=== PATIENT | female | born 1955 ===

== ENCOUNTER 2017-11-03 09:37 | Emergency (ER) | payer OTHER ==
--- NOTE | 2017-11-03 09:45 | ED PDOC ---
Arrival/HPI - General Time Seen by Provider: 11/03/17 09:38 Historian: Patient, Family - History of Present Illness Narrative History of Present Illness (Text): 11/03/17 09:50 A 62 year old female, whose past medical history includes diabetes, hypertension , and cholecystectomy, presents to the emergency department complaining of diffused abdominal pain. Patient reports pain began last night. Patient denies any nausea, vomiting, diarrhea, hematuria, bloody stool, or any other complaints. No PMD Time/Duration: Other (last night) Symptom Onset: Sudden Symptom Course: Unchanged Past Medical History - Provider Review Nursing Documentation Reviewed: Yes - Cardiac Hx Hypertension: Yes - Endocrine/Metabolic Hx Diabetes Mellitus Type 1: Yes - Psychiatric Hx Substance Use: No - Surgical History Hx Cholecystectomy: Yes - Anesthesia Hx Anesthesia: No Hx Anesthesia Reactions: No Hx Malignant Hyperthermia: No - Suicidal Assessment Feels Threatened In Home Enviroment: No Family/Social History - Physician Review Nursing Documentation Reviewed: Yes Family/Social History: No Known Family HX Smoking Status: Never Smoked Hx Alcohol Use: No Hx Substance Use: No Allergies/Home Meds Allergies/Adverse Reactions: Allergies No Known Allergies Allergy (Verified 07/21/15 11:43) Home Medications: Home Meds Medication Instructions Recorded Confirmed Insulin Detemir [Levemir Flexpen] 20 unit SC HS 07/21/15 11/03/17 Insulin Lispro, Recombinant 5 units SC ACBD 07/21/15 11/03/17 [Humalog] Glibenclamida 5 mg PO DAILY 11/03/17 11/03/17 Review of Systems - Physician Review All systems were reviewed & negative as marked: Yes - Review of Systems Gastrointestinal: Abdominal Pain (lower abdominal pain). absent: Stool Changes (no bloody stool), Diarrhea, Nausea, Vomiting Genitourinary Female: absent: Hematuria Physical Exam Vital Signs Reviewed: Yes Vital Signs Temp Pulse Resp BP Pulse Ox 11/03/17 13:20 80 18 156/81 H 97 11/03/17 09:37 98 F 86 16 161/100 H 98 Temperature: Afebrile Blood Pressure: Hypertensive Pulse: Regular Respiratory Rate: Normal Appearance: Positive for: Well-Appearing Pain Distress: None Mental Status: Positive for: Alert and Oriented X 3 - Systems Exam Abdomen: Present: Tenderness (mild lower abdominal tenderness) Medical Decision Making ED Course and Treatment: 11/03/17 09:55 Impression: 62 year old female with diffuse lower abdominal pain. Physical exam shows mild lower abdominal tenderness. r/o colitis, gastritis, pancreatitis. Plan: -- EKG -- Abd/Pelvis CT -- Chest X-ray -- Labs -- Urinalysis -- Protonix -- IV Fluids -- Reassess and disposition Prior Visits: Notes and results from previous visits were reviewed. Patient was last seen in the emergency department on 06/18/2016 for shortness of breath, palpitations, tingling in her hands, and upper chest tightness. Patient was discharged. Progress Notes: EKG: Ordered, reviewed, and independently interpreted the EKG. Rate : 84 BPM Rhythm : NSR Interpretation : No ST-segment elevations or depressions, no T-wave inversions, normal intervals. Comparison : No previous EKG for comparison. 11/03/2017 12:37 Abd/Pelvis CT FINDINGS: LOWER THORAX: There is a focal consolidation at the left lung base suspicious for pneumonia LIVER: Unremarkable. No gross lesion or ductal dilatation. GALLBLADDER AND BILE DUCTS: The gallbladder has been removed. There is dilatation of the common duct measuring 12 mm. There are no common duct stones seen and no evidence of an obstructing mass. PANCREAS: Unremarkable. No gross lesion or ductal dilatation. SPLEEN: Unremarkable. ADRENALS: Unremarkable. No mass. KIDNEYS AND URETERS: Unremarkable. No hydronephrosis. No solid mass. VASCULATURE: Unremarkable. No aortic aneurysm. BOWEL: Unremarkable. No obstruction. No gross mural thickening. APPENDIX: Normal appendix. PERITONEUM: Unremarkable. No free fluid. No free air. LYMPH NODES: Unremarkable. No enlarged lymph nodes. BLADDER: Unremarkable. REPRODUCTIVE: Unremarkable. BONES: No acute fracture. OTHER FINDINGS: None. IMPRESSION: Focal round consolidation at the left lung base suspicious for pneumonia. Lung mass cannot be excluded. No acute intra-abdominal findings Dictator: Gabe Casanova MD 11/03/17 12:52 ?pna vs mass- pt reports mild cough, curb 65 neg. advise outpt f/u for further w /u and eval for mass. explained extensively with georgian tranlatior 11/03/17 13:47 - Lab Interpretations Lab Results: 11/03/17 09:15 11/03/17 09:15 Lab Results 11/03/17 11:30: Urine Color Light yellow, Urine Appearance Clear, Urine pH 6.0, Ur Specific [place] 1.010, Urine Protein 30 H, Urine Glucose (UA) Negative, Urine Ketones Negative, Urine Blood Negative, Urine Nitrate Negative, Urine Bilirubin Negative, Urine Urobilinogen 0.2, Ur Leukocyte Esterase Trace H, Urine RBC 0 - 2, Urine WBC 2 - 5, Ur Epithelial Cells 0 - 2, Urine Bacteria Many 11/03/17 09:15: Sodium 141, Potassium 4.2, Chloride 105, Carbon Dioxide 28, Anion Gap 12, BUN 20, Creatinine 0.8, Est GFR ( Amer) > 60, Est GFR (Non- Af Amer) > 60, Random Glucose 120 H, Calcium 9.3, Total Bilirubin 0.5, Direct Bilirubin 0.4, AST 29, ALT 36, Alkaline Phosphatase 123, Lactate Dehydrogenase 475, Total Creatine Kinase 66, Troponin I < 0.01, Total Protein 7.7, Albumin 4.0 , Globulin 3.7, Albumin/Globulin Ratio 1.1, Amylase 58, Lipase 49 11/03/17 09:15: PT 11.3, INR 1.03, APTT 30.6 11/03/17 09:15: WBC 6.2, RBC 3.65, Hgb 10.9 L, Hct 32.8 L, MCV 89.9, MCH 29.9, MCHC 33.2, RDW 12.4, Plt Count 211, MPV 11.2 H, Gran % 67.4, Lymph % (Auto) 23.2 , Grant % (Auto) 5.8, Eos % (Auto) 3.4, Baso % (Auto) 0.2, Gran # 4.16, Lymph # 1.4, Grant # 0.4, Eos # 0.2, Baso # 0.01 I have reviewed the lab results: Yes - RAD Interpretation Radiology Orders: 11/03/17 11:01 ABD & PELVIS IV CONTRAST ONLY [CT] Stat 11/03/17 12:39 CXR [CHEST PORTABLE] [RAD] Stat - Medication Orders Current Medication Orders: Discontinued Medications Sodium Chloride (Sodium Chloride 0.9%) 500 mls @ 999 mls/hr IV .Q31M STA Stop: 11/03/17 10:25 Last Admin: 11/03/17 10:25 Dose: 999 mls/hr eMAR Start Stop Document 11/03/17 10:25 SRE (Rec: 11/03/17 10:26 SRE [id number]) Intravenous Solution Start Date 11/03/17 Start Time 10:25 End Date 11/03/17 End time 11:25 Total Infusion Time 60 Pantoprazole Sodium (Protonix Inj) 40 mg IVP ONCE ONE Stop: 11/03/17 10:01 Last Admin: 11/03/17 10:26 Dose: 40 mg IVP Administration Document 11/03/17 10:26 SRE (Rec: 11/03/17 10:26 SRE [id number]) Charges for Administration # of IVP Administrations 1 - Scribe Statement The provider has reviewed the documentation as recorded by the Maryam Peralta Provider Scribe Attestation: All medical record entries made by the Scribe were at my direction and personally dictated by me. I have reviewed the chart and agree that the record accurately reflects my personal performance of the history, physical exam, medical decision making, and the department course for this patient. I have also personally directed, reviewed, and agree with the discharge instructions and disposition. Disposition/Present on Arrival - Present on Arrival Any Indicators Present on Arrival: No History of DVT/PE: No History of Uncontrolled Diabetes: Yes Urinary Catheter: No History Surgical Site Infection Following: None - Disposition Have Diagnosis and Disposition been Completed?: Yes Diagnosis: Abdominal pain, Pneumonia Disposition: HOME/ ROUTINE Disposition Time: 12:53 Condition: STABLE Discharge Instructions (ExitCare): Acute Abdominal Pain (DC), Bacterial Pneumonia (ED) Print Language: GERMAN Additional Instructions: follow up with your doctor. you will need futher evaluation to rule out a mass. return to emergency room with worsening symptoms or concerns. it is important that you follow up with your doctor/clinic. Prescriptions: levoFLOXacin [Levaquin] 750 mg PO DAILY #10 tab Referrals: Felecia Melgar, [Primary Care Provider] - Follow up with primary [facility] [Outside] - Follow up with primary [facility] [Outside] - Follow up with primary [facility] [Outside] - Follow up with primary Forms: [employer] (Arabic)
[2017-11-03] MEDS ORDERED: Pantoprazole 40 MG in Sodium Chloride 0.9% 100 ML IV STA (09:54)
[2017-11-03] MEDS ORDERED: Sodium Chloride 0.9% 500 ML IV STA (09:55)
[2017-11-03 09:56] VITALS: TEMP 98; BMI 28.5
[2017-11-03 10:38] LABS: BASO # 0.01 K/mm3 (0.0-2.0); BASO % 0.2 % (0.0-3.0); EOS # 0.2 (0.0-0.7); EOS % 3.4 % (1.5-5.0); GRAN # 4.16 (1.4-6.5); GRAN % 67.4 % (50.0-68.0); HEMATOCRIT 32.8 % (36.0-48.0); LYMPH # 1.4 (1.2-3.4); LYMPH % 23.2 % (22.0-35.0); MEAN CELL VOLUME 89.9 fl (80.0-105.0); MEAN CORPUSCULAR HEMOGLOBIN 29.9 pg (25.0-35.0); MEAN CORPUSCULAR HGB CONC 33.2 g/dl (31.0-37.0); MEAN PLATELET VOLUME 11.2 fl (7.0-11.0); MONO # 0.4 (0.1-0.6); MONO % 5.8 % (1.0-6.0); RED CELL DISTRIBUTION WIDTH 12.4 % (11.5-14.5); WHITE BLOOD COUNT 6.2 10^3/ul (4.5-11.0)
[2017-11-03 10:44] LABS: INR 1.03 (0.93-1.08); PARTIAL THROMBOPLASTIN TIME 30.6 Seconds (25.1-36.5)
[2017-11-03 10:45] LABS: ALB/GLOB RATIO 1.1 (1.1-1.8); ALKALINE PHOSPHATASE 123 U/L (38-126); ALT/SGPT 36 U/L (7-56); AMYLASE 58 U/L (35-125); AST/SGOT 29 U/L (14-36); BILIRUBIN,TOTAL 0.5 mg/dL (0.2-1.3); BLOOD UREA NITROGEN 20 mg/dL (7-21); CALCIUM 9.3 mg/dL (8.4-10.5); CARBON DIOXIDE 28 mmol/L (21-33); CHLORIDE 105 mmol/L (98-107); GFR AFRICAN-AMERICAN > 60; GLUCOSE,RANDOM 120 mg/dL (70-110); LIPASE 49 U/L (23-300); POTASSIUM 4.2 mmol/L (3.6-5.0); SODIUM 141 mmol/L (132-148); TOTAL PROTEIN 7.7 g/dL (5.8-8.3)
[2017-11-03 10:54] LABS: TROPONIN I < 0.01 ng/mL
[2017-11-03 10:56] LABS: BILIRUBIN,DIRECT 0.4 mg/dL (0.0-0.4)
[2017-11-03] MEDS ORDERED: Iohexol 350 MG/100 ML VIAL ONE (11:35)
[2017-11-03 11:47] LABS: URINE BILIRUBIN NEGATIVE (NEGATIVE); URINE BLOOD NEGATIVE (NEGATIVE); URINE GLUCOSE (UA) NEGATIVE (NEGATIVE); URINE KETONE NEGATIVE (NEGATIVE); URINE LEUKOCYTE ESTERASE TRACE Leu/uL (NEGATIVE); URINE PROTEIN 30 mg/dL (<30 mg/dL); URINE UROBILINOGEN 0.2 E.U./dL (<1 E.U./dL)
[2017-11-03 11:48] LABS: URINE APPEARANCE CLEAR (CLEAR); URINE COLOR LIGHT YELLOW (YELLOW)
[2017-11-03 12:01] LABS: URINE EPITHELIAL CELLS 0 - 2 /hpf (0-5); URINE RBC 0 - 2 /hpf (0-2)
[2017-11-03 12:02] LABS: URINE BACTERIA MANY (NEG)
--- NOTE | 2017-11-03 12:39 | CT ---
PROCEDURE: CT Abdomen and Pelvis with contrast HISTORY: right upper and lower abd pain COMPARISON: None. TECHNIQUE: Contrast dose: 100 cc of Omni 350 Radiation dose: Total exam DLP = 399 mGy-cm. This CT exam was performed using one or more of the following dose reduction techniques: Automated exposure control, adjustment of the mA and/or kV according to patient size, and/or use of iterative reconstruction technique. FINDINGS: LOWER THORAX: There is a focal consolidation at the left lung base suspicious for pneumonia LIVER: Unremarkable. No gross lesion or ductal dilatation. GALLBLADDER AND BILE DUCTS: The gallbladder has been removed. There is dilatation of the common duct measuring 12 mm. There are no common duct stones seen and no evidence of an obstructing mass. PANCREAS: Unremarkable. No gross lesion or ductal dilatation. SPLEEN: Unremarkable. ADRENALS: Unremarkable. No mass. KIDNEYS AND URETERS: Unremarkable. No hydronephrosis. No solid mass. VASCULATURE: Unremarkable. No aortic aneurysm. BOWEL: Unremarkable. No obstruction. No gross mural thickening. APPENDIX: Normal appendix. PERITONEUM: Unremarkable. No free fluid. No free air. LYMPH NODES: Unremarkable. No enlarged lymph nodes. BLADDER: Unremarkable. REPRODUCTIVE: Unremarkable. BONES: No acute fracture. OTHER FINDINGS: None. IMPRESSION: Focal round consolidation at the left lung base suspicious for pneumonia. Lung mass cannot be excluded. No acute intra-abdominal findings
--- NOTE | 2017-11-03 13:13 | RAD ---
HISTORY: abd pain COMPARISON: 06/18/2016 FINDINGS: LUNGS: No active pulmonary disease. PLEURA: No significant pleural effusion identified, no pneumothorax apparent. CARDIOVASCULAR: Normal. OSSEOUS STRUCTURES: No significant abnormalities. VISUALIZED UPPER ABDOMEN: Normal. OTHER FINDINGS: None. IMPRESSION: No active disease.
[2017-11-03 13:22] VITALS: BP 156/81; PULSE 80; RESP 18; O2SAT 97
--- NOTE | 2017-11-03 23:40 | CARD ---
APPROVED REPORT EKG Measurement Heart [id number] MA [id number] <Conclusion> Normal sinus rhythm Inferior infarct, age undetermined Cannot rule out Anterior infarct, age undetermined Abnormal ECG
== END 2017-11-03 13:23 | disposition home or self-care (01) ==
LOC: ED 09:37
DX: J18.9 Pneumonia, unspecified organism (principal); R10.30 Lower abdominal pain, unspecified; I10 Essential (primary) hypertension; E10.9 Type 1 diabetes mellitus without complications
CPT/HCPCS: 71010; 74177; 80053; 81001; 82150; 82248; 82550; 83615; 83690; 84484; 85025; 85610; 85730; 87086; 87181; 93005; 96361; 96374; 99284; C9113; J7040; Q9967

== ENCOUNTER 2019-01-05 11:36 | Outpatient (CLI) | payer OTHER | END 2019-01-05 11:37 | disposition home or self-care (01) | LOC: LAB 11:36 | DX: E11.9 Type 2 diabetes mellitus without complications (principal); Z79.4 Long term (current) use of insulin ==

== ENCOUNTER 2019-02-08 09:33 | Outpatient (CLI) | payer OTHER | END 2019-02-08 09:34 | disposition home or self-care (01) | LOC: RAD 09:33 | DX: R10.31 Right lower quadrant pain (principal) ==

== ENCOUNTER 2019-02-21 11:07 | Emergency (ER) | payer OTHER ==
[2019-02-21 11:07] VITALS: BMI 28.5
[2019-02-21 11:49] VITALS: PULSE 85; O2SAT 100
[2019-02-21 12:06] VITALS: TEMP 97.9
--- NOTE | 2019-02-21 12:06 | ED PDOC ---
Arrival/HPI - General Chief Complaint: Dizziness/Lightheaded Time Seen by Provider: 02/21/19 11:28 Historian: Deicer Inspector Pneumatic (Jaylan, [id number]) - History of Present Illness Narrative History of Present Illness (Text): 02/21/19 12:05 63 F with pmh of diabetes, hypertension, and cholecystectomy presents with cc of intermittent dizziness x3 weeks. Patient is Pakistani speaking, a brim curler was used. Per brim curler, patient reports her dizziness date back to 1 hr ago but it went away for a while, until recently returning 3 weeks ago. Patient mentions that the dizziness sometimes last for approximately 1 hr, describes it as the room spinning making it difficult to grasp any objects while it occurs and occasional episodes of vomiting while dizziness persist. Patient endorses see a physician for dizziness before, as well as being complaint with the prescribed medications. Patient recalls medications relieving her dizziness. Patient denies any fevers, chills, headache, chest pain, cough, diaphoresis, abdominal pain, nausea, vomiting, diarrhea, back pain, neck pain, or any other complaint. Patient was sent to the ED by her pcp. 02/21/19 14:42 Time/Duration: < month Symptom Onset: Gradual Symptom Course: Unchanged Activities at Onset: Light Context: Home Past Medical History - Provider Review Nursing Documentation Reviewed: Yes - Infectious Disease Hx of Infectious Diseases: None - Cardiac Hx Cardiac Disorders: Yes Hx Hypertension: Yes - Pulmonary Hx Respiratory Disorders: Yes Hx Bronchitis: Yes - Neurological Hx Neurological Disorder: Yes Other/Comment: NEUROPATHY - HEENT Hx HEENT Disorder: Yes Other/Comment: TONSILITIS - Renal Hx Renal Disorder: Yes Other/Comment: RENAL INSUFFICIENCY - Endocrine/Metabolic Hx Endocrine Disorders: Yes Hx Diabetes Mellitus Type 1: Yes - Hematological/Oncological Hx Blood Disorders: Yes Hx Anemia: Yes - Integumentary Hx Dermatological Disorder: No - Musculoskeletal/Rheumatological Hx Musculoskeletal Disorders: Yes Hx Back Pain: Yes Other/Comment: TENDONITIS - Gastrointestinal Hx Gastrointestinal Disorders: Yes Hx Constipation: Yes - Psychiatric Hx Substance Use: No - Surgical History Hx Cholecystectomy: Yes - Anesthesia Hx Anesthesia: No Hx Anesthesia Reactions: No Hx Malignant Hyperthermia: No - Suicidal Assessment Feels Threatened In Home Enviroment: No Family/Social History - Physician Review Nursing Documentation Reviewed: Yes Family/Social History: Unknown Family HX Smoking Status: Never Smoked Hx Alcohol Use: No Hx Substance Use: No Allergies/Home Meds Allergies/Adverse Reactions: Allergies No Known Allergies Allergy (Verified 02/21/19 11:33) Home Medications: Home Meds Medication Instructions Recorded Confirmed Insulin Lispro, Recombinant 3 units SC ACBD 07/21/15 11/03/17 [Humalog] Gabapentin [Neurontin] 100 mg PO HS 02/21/19 02/21/19 Insulin Human Isophane (NPH) 10 unit SC BID 02/21/19 02/21/19 [Novolin N] Lisinopril [Zestril] 10 mg PO DAILY 02/21/19 02/21/19 metFORMIN [glucOPHAGE] 500 mg PO TID 02/21/19 02/21/19 Review of Systems - Physician Review All systems were reviewed & negative as marked: Yes - Review of Systems Constitutional: Normal Eyes: Normal ENT: Normal Respiratory: Normal Cardiovascular: Normal Gastrointestinal: Normal Genitourinary Female: Normal Musculoskeletal: Normal Skin: Normal Neurological: Dizziness Endocrine: Normal Hemo/Lymphatic: Normal Psychiatric: Normal Physical Exam - Physical Exam Narrative Physical Exam (Text): 02/21/19 12:15 Gen: VS reviewed, alert, well developed, well nourished, nontoxic, mild distress Eye: EOMI, PERRL Neck: no JVD, supple, no adenopathy CV: regular rate, regular rhythm, no rubs,no murmur, S1, S2 Pulm: no distress, clear to auscultation, no wheeze, no rhonchi, breath sounds equal, no rales Abd: soft, nontender, no guarding, no rebound, no rigidity Ext: no edema Skin: good color, no rash, no cyanosis Psych: responds appropriately to questions, normal affect Neuro: oriented x3, CN2-12 intact grossly, motor intact, sensation intact. Normal finger to nose. No nystagmus Vital Signs Pulse Resp BP Pulse Ox 02/21/19 11:35 85 16 146/76 100 Medical Decision Making ED Course and Treatment: 02/21/19 12:14 Impression: 63 F presents with cc of intermittent dizziness x3 weeks Plan: -- CT head w/o contrast -- Reassess and disposition Prior Visits: Notes and results from previous visits were reviewed. Progress Notes: 02/21/19 14:41 patient seen for intermittent vertigo, no neuro deficits, no associated headache, recurrent vertigo. clinically consistent with bppv. will refer to ENT and pcp for further workup. Patient and family member at bedside have been provided all details and care expectations. All discussion via bitumen plant operator line. There appeared to be good understanding. 02/21/19 14:43 - RAD Interpretation Narrative RAD Interpretations (Text): 02/21/19 14:[address] No acute intracranial findings Radiology Orders: 02/21/19 11:51 HEAD W/O CONTRAST [CT] Stat Software Integrator: Radiologist - Scribe Statement The provider has reviewed the documentation as recorded by the Maryam English All medical record entries made by the Tayeibe were at my direction and personally dictated by me. I have reviewed the chart and agree that the record accurately reflects my personal performance of the history, physical exam, medical decision making, and the department course for this patient. I have also personally directed, reviewed, and agree with the discharge instructions and disposition. Disposition/Present on Arrival - Present on Arrival Any Indicators Present on Arrival: No History of DVT/PE: No History of Uncontrolled Diabetes: Yes Urinary Catheter: No History of Decub. Ulcer: No History Surgical Site Infection Following: None - Disposition Have Diagnosis and Disposition been Completed?: Yes Diagnosis: Vertigo Disposition: HOME/ ROUTINE Disposition Time: 14:44 Patient Plan: Discharge Patient Problems: Current Active Problems Problem Status Onset Vertigo Acute Condition: STABLE Discharge Instructions (ExitCare): Vertigo (a Type of Dizziness) Print Language: PERSIAN Additional Instructions: return for any problems or concerns. follow up with the ear,nose,throat doctor. Prescriptions: Meclizine [Meclizine*] 25 mg PO TID #15 tab Referrals: Zohra Monterroso DO [Primary Care Provider] - Follow up with primary Ed Arreguin DO [Staff Provider] - Follow up with primary Forms: [employer] (Yi), WORK NOTE
--- NOTE | 2019-02-21 14:16 | CT ---
Date of service: 02/21/2019 PROCEDURE: CT HEAD WITHOUT CONTRAST. HISTORY: dizziness, vertigo COMPARISON: None available. TECHNIQUE: Axial computed tomography images were obtained through the head/brain without intravenous contrast. Radiation dose: Total exam DLP = 856.88 mGy-cm. This CT exam was performed using one or more of the following dose reduction techniques: Automated exposure control, adjustment of the mA and/or kV according to patient size, and/or use of iterative reconstruction technique. FINDINGS: HEMORRHAGE: No intracranial hemorrhage. BRAIN: No mass effect or edema. Mild atrophy. No acute intracranial findings VENTRICLES: Unremarkable. No hydrocephalus. CALVARIUM: Unremarkable. PARANASAL SINUSES: Unremarkable as visualized. No significant inflammatory changes. MASTOID AIR CELLS: Unremarkable as visualized. No inflammatory changes. OTHER FINDINGS: None. IMPRESSION: No acute intracranial findings
[2019-02-21 15:12] VITALS: BP 128/70; RESP 18
--- NOTE | 2019-02-21 17:40 | CARD ---
APPROVED REPORT Date of service: 02/21/2019 EKG Measurement Heart [id number] [place] [id number] <Conclusion> Normal sinus rhythm Inferior infarct, age undetermined Abnormal ECG
== END 2019-02-21 15:12 | disposition home or self-care (01) ==
LOC: ED 11:07
DX: R42 Dizziness and giddiness (principal); I10 Essential (primary) hypertension